=== PATIENT | male | born 1960 | race Two or more races ===

== ENCOUNTER → 2024-05-27 | Outpatient (CLI) | payer OTHER, SELFPAY ==
[2024-05-27 09:19] LABS: Collection Type, Urine Clean Catch
[2024-05-27 09:48] LABS: Basophils % (Auto) 1 % (0-2.5); Eosinophils # (Auto) 0.2 Thou/mm3 (0.0-0.5); Eosinophils % (Auto) 2 % (0-10); Hematocrit 43.6 % (41.0-53.0); Hemoglobin 14.3 g/dL (13.5-16.0); Immature Granulocytes % (Auto) 0 % (0-0); Immature Granulocytes Auto 0.02 Thou/mm3 (0.00-0.00); Lymphocytes # (Auto) 1.1 Thou/mm3 (1.0-4.8); Lymphocytes % (Auto) 14 % (10-50); Mean Corpuscular HGB Conc 32.8 g/dl (31.0-37.0); Mean Corpuscular Hemoglobin 28.9 pg (25.0-35.0); Mean Corpuscular Volume 88 fL (80-100); Monocytes # (Auto) 0.6 Thou/mm3 (0.0-0.8); Monocytes % (Auto) 7 % (0-12); Neutrophils % (Auto) 76 % (37-80); Nucleated Red Blood Cell % 0 /100 WBC (0); Platelet Count 341 Thou/mm3 (140-440); Red Blood Count 4.94 Miln/mm3 (4.50-5.90); White Blood Count 7.8 Thou/mm3 (3.8-10.6)
[2024-05-27 09:51] LABS: Bilirubin,Urine Negative (Negative); Blood,Urine Negative (Negative); Clarity,Urine Clear (Clear/Hazy); Color,Urine Lt-Yellow (Lt Yel-Yel); Glucose, Urine Negative (Negative); Ketones,Urine Negative (Negative); Leukocyte Esterase,Urine Negative (Negative); Nitrite,Urine Negative (Negative); Protein,Urine Negative (Neg - Trace); RBC,Urine 1 /hpf (0-3); Specific Gravity,Urine 1.017 (1.001-1.035); Squamous Epithelial Cell,Urine 1 /hpf (0-5); Urobilinogen,Urine Negative mg/dL (0.0-1.0); WBC,Urine < 1 /hpf (0-5)
[2024-05-27 10:04] LABS: Alanine Aminotransferase 15 U/L (10-49); Albumin, Serum 4.1 gm/dL (3.4-4.8); Albumin/Globulin Ratio 1.6 (1.2-2.2); Alkaline Phosphatase 123 U/L (46-116); Anion Gap 7 (7-16); Aspartate Amino Transferase 13 U/L (0-34); BUN/Creatinine Ratio 14 Ratio (12-20); Bilirubin,Total 0.6 mg/dL (0.3-1.2); Blood Urea Nitrogen 14 mg/dL (9-23); Calcium 9.5 mg/dL (8.3-10.6); Calcium (Corrected) 9.5 mg/dL (8.5-10.1); Chloride 102 mMol/L (98-107); Cholesterol 168 mg/dL (132-200); Globulin 2.6 gm/dL (2.3-3.5); Glucose 92 mg/dL (74-106); HDL Cholesterol 42 mg/dL (40-60); LDL Cholesterol,Calculated 110 mg/dL (0-130); Osmolality,Calculated 278 (275-295); Potassium 4.9 mMol/L (3.4-5.1); Sodium 139 mMol/L (136-145); Thyroid Stimulating Hormone 1.59 uIU/mL (0.55-4.78); Total Protein 6.7 gm/dL (5.7-8.2); Triglycerides 79 mg/dL (30-150); Uric Acid 4.8 mg/dL (3.7-9.2); eGFR > 60 See Note
== END | disposition home or self-care (01) ==
PROVIDERS: PCP Family Medicine; Referring Provider Family Medicine; Visit Provider Family Medicine
DX: Z00.00 Encounter for general adult medical examination without abnormal findings (principal); E78.2 Mixed hyperlipidemia; I10 Essential (primary) hypertension; M10.9 Gout, unspecified; Z83.3 Family history of diabetes mellitus
CPT/HCPCS: 36415; 80053; 80061; 81001; 84443; 84550; 85025

== ENCOUNTER 2024-06-20 15:18 | Emergency (ER) | payer OTHER, MEDICAID, SELFPAY ==
[2024-06-20 15:31] VITALS: BP 121/77; PULSE 80; RESP 16; TEMP 36.8; O2SAT 96; BMI 28.0
--- NOTE | 2024-06-20 15:44 | PD.EDHA ---
ED Headache RME/HPI General Chief Complaint: Headache Stated Complaint: HEADACHE WITH REDNESS TO NECK Time Seen by Provider: 06/20/24 15:27 Arrival date/time: 06/20/24 15:18 This is a 64-year-old male that comes in with complaints of headache and mild erythema to the back of head/neck. Patient appears to have what looks like a sebaceous cyst. Patient was placed on antibiotics 2 days ago by his primary provider. Patient was started on Keflex. Patient states that he felt like it started to to have white drainage. Patient scheduled to go back and see his primary on Friday. He was told that if they did not know open on its own he they were going to open it for him on the day of his appointment. Related Data Home Medications ?Medication ?Instructions ?Recorded ?Confirmed allopurinol 300 mg tablet 300 mg PO QDAY 03/21/19 11/06/20 lisinopril 20 mg tablet 20 mg PO QDAY 03/21/19 11/06/20 Previous Rx's ?Medication ?Instructions ?Recorded levofloxacin 500 mg tablet 500 mg PO QDAY #7 tabs 11/06/20 azithromycin 250 mg tablet See Rx Instructions PO .COMPLEX #6 11/16/20 (Zithromax Z-Ras) tabs famotidine 20 mg tablet 20 mg PO QDAY #30 tabs 12/15/22 ondansetron HCl 4 mg tablet 4 mg PO Q8H #14 tabs 12/15/22 doxycycline hyclate 100 mg tablet 100 mg PO BID #14 tabs 06/20/24 Allergies Allergy/AdvReac Type Severity Reaction Status Date / Time Penicillins Allergy Severe Swelling Verified 06/20/24 15:21 of Lip/Tongue/Throat Course Orders Category Date Time Status Acetaminophen Tab [Tylenol ES Tab] Med 06/20/24 15:44 Discontinued 1,000 mg PO X1 ONE Ibuprofen Tab [Motrin Tab] Med 06/20/24 15:44 Once 800 mg PO X1 ONE Vital Signs Vital signs: Vital Signs Temperature 98.2 F 06/20/24 15:31 Pulse Rate 80 06/20/24 15:31 Respiratory Rate 16 06/20/24 15:31 Blood Pressure 121/77 06/20/24 15:31 Pulse Oximetry (%) 96 06/20/24 15:31 Oxygen Delivery Method Room Air 06/20/24 15:31 Headache MDM Narrative MDM Narrative:: Patient has a scheduled appointment with primary provider on Friday. Patient has been on antibiotics now for 2 to 3 days. Will add an antibiotic today to cover for MRSA. Patient told to keep scheduled appointment on Friday with primary provider. Patient comfortable plan of care. Patient told to come back to the emergency room if symptoms change or worsen. Medications / Prescriptions Medication administrations:: Medication Administration History Discontinued Medications Acetaminophen (Acetaminophen 500 Mg Tablet) 1,000 mg PO X1 ONE Stop: 06/20/24 15:45 Ibuprofen (Ibuprofen Tab 400 Mg Tablet) 800 mg PO X1 ONE Stop: 06/20/24 15:45 Discharge Plan Plan Patient Disposition: HOME (Self Care) Patient condition on transfer: Stable Prescriptions/Referrals Prescriptions/Med Rec: New doxycycline hyclate 100 mg tablet 100 mg PO BID Qty: 14 0RF No Action lisinopril 20 mg Tablet 20 mg PO QDAY allopurinol 300 mg Tablet 300 mg PO QDAY levofloxacin 500 mg tablet 500 mg PO QDAY Qty: 7 0RF azithromycin [Zithromax Z-Ras] 250 mg tablet See Rx Instructions PO .COMPLEX Qty: 6 0RF Rx Instructions: take 500 mg today (day 1), then 250 mg for 4 days (days 2-5) famotidine 20 mg tablet 20 mg PO QDAY Qty: 30 0RF ondansetron HCl 4 mg tablet 4 mg PO Q8H Qty: 14 0RF Problem List Clinical Impression: Cellulitis Patient/Caregiver Discharge Instructions Discharge Activity: activity as tolerated Education Materials: ED Cellulitis Additional Instructions: Follow up with primary provider in 1-2 days. Come back to ED if symptoms change or worsen Print Language: Nigerian Stand Alone Forms: Jerri Award Info., Patient Portal Info Letter PA/RECORD PRESS SUPERVISOR Supervising Physician PA/RECORD PRESS SUPERVISOR Supervising Physician: [email or web address]
[2024-06-20] MEDS: IBUPROFEN TAB 400 MG TABLET 800 MG PO (16:06)
[2024-06-20] MEDS: DOXYCYCLINE 100 MG TABLET PO (16:06)
[2024-06-20] MEDS: ACETAMINOPHEN 500 MG TABLET 1000 MG PO (16:07)
== END 2024-06-20 16:23 | disposition home or self-care (01) ==
LOC: SERX 16:20
PROVIDERS: Emergency Provider Emergency Medicine
DX: L03.811 Cellulitis of head [any part, except face] (principal)
CPT/HCPCS: 99282; A9270

== ENCOUNTER → 2024-09-03 | Outpatient (CLI) | payer OTHER, MEDICAID, SELFPAY ==
--- NOTE | 2024-09-03 10:32 | XR_ITS ---
Examination: Knee, left , 3 views Technique: Knee AP, lateral, oblique 3 views Date and time of exam: September 03, 2024 1040 hours INDICATIONS: Left knee swelling and pain beginning 2 years ago. FINDINGS: Moderate osteopenia. Moderate osteoarthritis medial patellofemoral joints Moderate knee effusion No fracture IMPRESSION: Moderate osteoarthritis Moderate knee effusion
== END | disposition home or self-care (01) ==
PROVIDERS: PCP Family Medicine; Referring Provider Family Medicine; Visit Provider Family Medicine
DX: M17.12 Unilateral primary osteoarthritis, left knee (principal); M25.462 Effusion, left knee
CPT/HCPCS: 73562

== ENCOUNTER → 2024-09-21 | Outpatient (CLI) | payer OTHER, MEDICAID, SELFPAY ==
--- NOTE | 2024-09-21 14:00 | XR_ITS ---
Examination: Bone densitometry Date and time of exam:September 21, 2024 1432 hours INDICATIONS: 64-year-old male with diagnosis age related osteoporosis Technique: Lumbar spine and hip total bone mineralization values of an calculated. Peak reference and age match control results have been displayed. Findings: Lumbar spine total bone mineralization is1.019 gm/cm2. This is 0.7 standard deviations below peak reference. This is 0.1 standard deviations above age-matched controls. Hip total bone mineralization is 0.943 gm/cm2 This is 0.8 standard deviations below peak reference. This is 0.3 standard deviations below age-matched controls Impression: There is normal mineralization based on lumbar spine measurements. There is osteopenia based on hip measurements
== END | disposition home or self-care (01) ==
LOC: CDIM 13:57
PROVIDERS: Referring Provider Family Medicine; Visit Provider Family Medicine
DX: M85.88 Other specified disorders of bone density and structure, other site (principal)
CPT/HCPCS: 77080

== ENCOUNTER → 2025-02-18 | Outpatient (CLI) | payer OTHER, MEDICAID, SELFPAY ==
[2025-02-18 08:52] LABS: Alanine Aminotransferase 19 U/L (10-49); Albumin, Serum 4.8 gm/dL (3.4-4.8); Albumin/Globulin Ratio 2.3 (1.2-2.2); Alkaline Phosphatase 105 U/L (46-116); Anion Gap 11 (7-16); Aspartate Amino Transferase 23 U/L (0-34); BUN/Creatinine Ratio 10 Ratio (12-20); Bilirubin,Total 0.6 mg/dL (0.3-1.2); Blood Urea Nitrogen 10 mg/dL (9-23); Calcium 9.3 mg/dL (8.3-10.6); Calcium (Corrected) 9.3 mg/dL (8.5-10.1); Carbon Dioxide 28.2 mMol/L (20.0-31.0); Cardiac Risk Estimate 3.3 RATIO (4.0-6.7); Chloride 103 mMol/L (98-107); Cholesterol 150 mg/dL (132-200); Creatinine (Component) 1.0 mg/dL (0.6-1.3); Globulin 2.1 gm/dL (2.3-3.5); Glucose 96 mg/dL (74-106); HDL Cholesterol 46 mg/dL (40-60); LDL Cholesterol,Calculated 60 mg/dL (0-130); Osmolality,Calculated 282 (275-295); Potassium 4.5 mMol/L (3.4-5.1); Sodium 142 mMol/L (136-145); Total Protein 6.9 gm/dL (5.7-8.2); Triglycerides 222 mg/dL (30-150); Uric Acid 7.0 mg/dL (3.7-9.2); eGFR > 60 See Note
== END | disposition home or self-care (01) ==
LOC: COPL 07:23
PROVIDERS: PCP Family Medicine; Referring Provider Family Medicine; Visit Provider Family Medicine
DX: I10 Essential (primary) hypertension (principal); E78.2 Mixed hyperlipidemia; E79.0 Hyperuricemia without signs of inflammatory arthritis and tophaceous disease
CPT/HCPCS: 36415; 80053; 80061; 84550